=== PATIENT | female | born 1940 | race Caucasian/White ===

== ENCOUNTER → 2016-11-12 | Outpatient (REF) | payer MEDICARE ==
[2016-11-12 15:30] LABS: ALBUMIN 3.8 g/dL (3.4-5.0); TOTAL PROTEIN 7.1 g/dL (6.4-8.5)
== END ==
LOC: LAB 14:16
PROVIDERS: ATTEND Family Medicine
DX: R74.8 Abnormal levels of other serum enzymes (principal); G25.81 Restless legs syndrome; G47.09 Other insomnia; N39.498 Other specified urinary incontinence; Z86.19 Personal history of other infectious and parasitic diseases; I10 Essential (primary) hypertension
CPT/HCPCS: 80076; 82306; 83970